=== PATIENT | female | born 1955 | race Caucasian/White ===

== ENCOUNTER 2016-09-28 11:46 | Emergency (ER) | payer SELFPAY ==
--- NOTE | 2016-09-28 12:13 | ER Document Report ---
ED Medical Screen (RME) - General Stated Complaint: ABDOMINAL PAIN Mode of Arrival: Ambulatory Information source: Patient Notes: Patient presents complaining of right lower groin/ pelvic tenderness. Patient saw her primary doctor 4 days ago and went to [facility] 3 days ago. Patient reports pain symptoms since May of last year. Patient reports that she was voiding and noticed stool in her urine last night. hx: COPD I have greeted and performed a rapid initial assessment of this patient. A comprehensive ED assessment and evaluation of the patient, analysis of test results and completion of the medical decision making process will be conducted by additional ED providers. Physical Exam - Vital signs Vitals: Temp Pulse Resp BP Pulse Ox 98.0 F 93 18 104/66 93 09/28/16 11:51 09/28/16 11:51 09/28/16 11:51 09/28/16 11:51 09/28/16 11:51 - Abdominal Tenderness: Tender - Right lower pelvic Course - Vital Signs Vital signs: Temp Pulse Resp BP Pulse Ox 98.0 F 93 18 104/66 93 09/28/16 11:51 09/28/16 11:51 09/28/16 11:51 09/28/16 11:51 09/28/16 11:51
[2016-09-28 13:24] LABS: ABSOLUTE BASOPHILS # (AUTO) 0.1 10^3/uL (0.0-0.2); ABSOLUTE EOSINOPHILS # (AUTO) 0.2 10^3/uL (0.0-0.6); ABSOLUTE LYMPHOCYTES (AUTO) 1.5 10^3/uL (0.5-4.7); ABSOLUTE MONOCYTES (AUTO) 0.7 10^3/uL (0.1-1.4); ABSOLUTE NEUT (AUTO) 5.5 10^3/uL (1.7-8.2); BASOPHILS % (AUTO) 0.9 % (0-2); EOSINOPHILS % (AUTO) 2.9 % (0-6); HEMATOCRIT 37.5 % (36.0-47.0); HEMOGLOBIN 12.7 g/dL (12.0-15.5); HGB HCT DIFFERENCE 0.6; LYMPHOCYTES % (AUTO) 18.4 % (13-45); MEAN CORPUSCULAR VOLUME 85 fl (80-97); MONOCYTES % (AUTO) 8.8 % (3-13); RED CELL DISTRIBUTION WIDTH 13.5 % (11.5-14.0)
[2016-09-28 13:40] LABS: ALANINE AMINOTRANSFERASE 21 U/L (9-52); ALBUMIN 4.3 g/dL (3.5-5.0); ALKALINE PHOSPHATASE 99 U/L (38-126); ANION GAP 12 (5-19); ASPARTATE AMINO TRANSFERASE 19 U/L (14-36); BILIRUBIN,TOTAL 0.4 mg/dL (0.2-1.3); BLOOD UREA NITROGEN 21 mg/dL (7-20); CALCIUM 9.7 mg/dL (8.4-10.2); CARBON DIOXIDE 27 mmol/L (22-30); CHLORIDE 104 mmol/L (98-107); CREATININE RESULT 0.63 mg/dL (0.52-1.25); GLUCOSE 96 mg/dL (75-110); POTASSIUM 3.7 mmol/L (3.6-5.0); SODIUM 143.2 mmol/L (137-145); TOTAL PROTEIN 7.2 g/dL (6.3-8.2)
[2016-09-28 13:42] LABS: APPEARANCE,URINE SLIGHTLY-CLOUDY; BILIRUBIN,URINE NEGATIVE (NEGATIVE); GLUCOSE, URINE NEGATIVE (NEGATIVE); KETONES,URINE NEGATIVE (NEGATIVE); LEUKOCYTE ESTERASE,URINE NEGATIVE (NEGATIVE); NITRITE,URINE NEGATIVE (NEGATIVE); PROTEIN,URINE NEGATIVE (NEGATIVE)
--- NOTE | 2016-09-28 14:54 | ER Document Report ---
ED GI/ - General Time seen by provider: 14:45 Mode of Arrival: Ambulatory Information source: Patient TRAVEL OUTSIDE OF THE [place] IN LAST 30 DAYS: No - HPI Patient complains to provider of: Abdominal pain - RLQ, Other - Presence of fecal material in urine. Onset: Other - Abdominal pain has been present since May 2016, fecal material in urine has been present since last night Location: RLQ Associated symptoms: Other - see above <NASEEM DONALD - Last Filed: 09/28/16 20:16> <SIDNEY ROSENBAUM - Last Filed: 10/05/16 14:09> - General Chief Complaint: Lower Abdominal Pain Stated Complaint: ABDOMINAL PAIN Notes: 61 year old female with history of COPD and a hysterectomy presents to the ED complaining of fecal material in her urine that started last night. Patient states that when she went to urinate last night, she noticed a blood clot like material pass. Upon further examination, the patient said that it was fecal material. Patient is also complaining of RLQ abdominal pain that has been present since May 2016. Patient was seen at [facility] 4 days ago for the same complaint and had a CT abdomen performed. Patient's family states that the scans were inconclusive except for some areas of interest on the patient's lungs. Patient describes the pain as if her abdomen is kevin and the only way to achieve relief is to raise her hands above her head. These episodes lasts for minutes and happens generally when moving in a certain way. Patient denies getting a colonoscopy or following up with her primary care physician for the abdominal pain. Patient denies having a primary care provider. (NASEEM DONALD) - Related Data Allergies/Adverse Reactions: No Known Allergies Allergy (Verified 09/28/16 12:14) Past Medical History - General Information source: Patient - Social History Smoking Status: Former Smoker Chew tobacco use (# tins/day): No Family History: Reviewed & Not Pertinent Patient has suicidal ideation: No Patient has homicidal ideation: No Pulmonary Medical History: Reports: Hx COPD Renal/ Medical History: Denies: Hx Peritoneal Dialysis Past Surgical History: Reports: Hx Hysterectomy <NASEEM DONALD - Last Filed: 09/28/16 20:16> Review of Systems - Review of Systems Constitutional: No symptoms reported EENT: No symptoms reported Cardiovascular: No symptoms reported Respiratory: No symptoms reported Gastrointestinal: See HPI, Abdominal pain - RLQ, Other - Fecal material in patient's urine. Genitourinary: No symptoms reported Female Genitourinary: No symptoms reported Musculoskeletal: No symptoms reported Skin: No symptoms reported Hematologic/Lymphatic: No symptoms reported Neurological/Psychological: No symptoms reported -: Yes All other systems reviewed and negative <NASEEM DONALD - Last Filed: 09/28/16 20:16> Physical Exam - Vital signs Interpretation: Normal - General General appearance: Alert In distress: None - HEENT Head: Normocephalic, Atraumatic Eyes: Normal Extraocular movements intact: Yes Pupils: PERRL - Respiratory Respiratory status: No respiratory distress Breath sounds: Normal - Cardiovascular Rhythm: Regular Heart sounds: Normal auscultation - Abdominal Inspection: Normal Distension: No distension Bowel sounds: Normal Tenderness: Nontender - Back Back: Normal - Extremities General upper extremity: Normal inspection, Normal ROM General lower extremity: Normal inspection, Normal ROM - Neurological Neuro grossly intact: Yes Cognition: Normal Orientation: AAOx4 Germain Coma Scale Eye Opening: Spontaneous Paradis Coma Scale Verbal: Oriented Germain Coma Scale Motor: Obeys Commands Paradis Coma Scale Total: 15 Speech: Normal - Psychological Associated symptoms: Normal affect, Normal mood - Skin Skin Temperature: Warm Skin Moisture: Dry Skin Color: Normal <NASEEM DONALD - Last Filed: 09/28/16 20:16> Course - Laboratory Result Diagrams: 09/28/16 15:41 09/28/16 15:41 <NASEEM DONALD - Last Filed: 09/28/16 20:16> - Laboratory Result Diagrams: 09/28/16 15:41 09/28/16 15:41 <SIDNEY ROSENBAUM - Last Filed: 10/05/16 14:09> - Vital Signs Vital signs: Temp Pulse Resp BP Pulse Ox 98.2 F 93 16 118/75 94 09/28/16 20:03 09/28/16 20:03 09/28/16 20:03 09/28/16 20:03 09/28/16 20:03 - Laboratory Laboratory results interpreted by me: 09/28/16 09/28/16 09/28/16 12:50 12:50 15:41 BUN 21 H 21 H Urine Urobilinogen 4.0 H Discharge <NASEEM DONALD - Last Filed: 09/28/16 20:16> <SIDNEY ROSENBAUM - Last Filed: 10/05/16 14:09> - Discharge Clinical Impression: Abdominal pain Qualifiers: Abdominal location: unspecified location Qualified Code(s): R10.9 - Unspecified abdominal pain Condition: Stable Disposition: HOME, SELF-CARE Instructions: Abdominal Pain ([facility]) Additional Instructions: Abdominal Pain There are many causes of abdominal pain. Pain can mean a serious problem requiring surgery (such as appendicitis). It can also be an innocent problem that goes away on its own (such as a viral infection). Often, time must pass to determine the cause of pain. The physician does not feel that hospitalization is necessary, at present. Things may change within the next 24 hours. Call the doctor or come back for re- examination if any problems occur, such as: (1) Pain that becomes more severe, steady, or becomes concentrated in one specific area. Also, pain that is more severe with movement or coughing. (2) Vomiting that persists or becomes more frequent. (3) Blood in the vomitus, urine, or bowel movements. Blood in the stool may have a tarry or black appearance. (4) Shaking chills or fever greater than 100 degrees F. (5) The abdomen becomes more distended or swollen. (6) Bowel movements cease. (7) Failure to improve as expected. Referrals: FLORY TORRES MD [ACTIVE STAFF] - Follow up in 3-5 days (Call for follow-up appointment be seen in 3-4 days) [facility] [Provider Group] - Follow up in 3-5 days (Call in a.m. for follow-up appointment in 3-5 days and to establish herself with a primary care physician return for increasing worsening or new symptoms) Scribe Documentation - Scribe Written by Anastasiia:: Anastasiia Coombs, 09/28/2016 1545 acting as scribe for :: Rigo <NASEEM DONALD - Last Filed: 09/28/16 20:16>
[2016-09-28 16:10] LABS: ABSOLUTE BASOPHILS # (AUTO) 0.1 10^3/uL (0.0-0.2); ABSOLUTE EOSINOPHILS # (AUTO) 0.2 10^3/uL (0.0-0.6); ABSOLUTE LYMPHOCYTES (AUTO) 1.6 10^3/uL (0.5-4.7); ABSOLUTE MONOCYTES (AUTO) 0.8 10^3/uL (0.1-1.4); ABSOLUTE NEUT (AUTO) 5.7 10^3/uL (1.7-8.2); BASOPHILS % (AUTO) 0.6 % (0-2); EOSINOPHILS % (AUTO) 2.4 % (0-6); HEMATOCRIT 38.8 % (36.0-47.0); HEMOGLOBIN 12.9 g/dL (12.0-15.5); HGB HCT DIFFERENCE -0.1; LYMPHOCYTES % (AUTO) 19.6 % (13-45); MEAN CORPUSCULAR HEMOGLOBIN 28.7 pg (27.0-33.4); MEAN CORPUSCULAR HGB CONC 33.4 g/dL (32.0-36.0); MEAN CORPUSCULAR VOLUME 86 fl (80-97); MONOCYTES % (AUTO) 10.1 % (3-13); RED BLOOD COUNT 4.51 10^6/uL (3.72-5.28); RED CELL DISTRIBUTION WIDTH 13.2 % (11.5-14.0); SEGMENTED NEUTROPHILS % (AUTO) 67.3 % (42-78); WHITE BLOOD COUNT 8.4 10^3/uL (4.0-10.5)
[2016-09-28 16:30] LABS: ALANINE AMINOTRANSFERASE 21 U/L (9-52); ALBUMIN 3.9 g/dL (3.5-5.0); ALKALINE PHOSPHATASE 101 U/L (38-126); ANION GAP 9 (5-19); ASPARTATE AMINO TRANSFERASE 27 U/L (14-36); BILIRUBIN,TOTAL 0.4 mg/dL (0.2-1.3); BLOOD UREA NITROGEN 21 mg/dL (7-20); CALCIUM 9.5 mg/dL (8.4-10.2); CARBON DIOXIDE 29 mmol/L (22-30); CHLORIDE 102 mmol/L (98-107); CREATININE RESULT 0.59 mg/dL (0.52-1.25); GLUCOSE 93 mg/dL (75-110); POTASSIUM 3.7 mmol/L (3.6-5.0); SODIUM 140.1 mmol/L (137-145); TOTAL PROTEIN 7.7 g/dL (6.3-8.2)
[2016-09-28 17:35] LABS: APPEARANCE,URINE CLEAR; BILIRUBIN,URINE NEGATIVE (NEGATIVE); GLUCOSE, URINE NEGATIVE (NEGATIVE); KETONES,URINE NEGATIVE (NEGATIVE); LEUKOCYTE ESTERASE,URINE NEGATIVE (NEGATIVE); NITRITE,URINE NEGATIVE (NEGATIVE); PROTEIN,URINE NEGATIVE (NEGATIVE); URINE SPECIFIC GRAVITY 1.008; UROBILINOGEN,URINE NEGATIVE mg/dL (<2.0)
[2016-09-28 20:08] VITALS: BP 118/75
== END 2016-09-28 20:20 | disposition home or self-care (01) ==
LOC: ER 11:46
DX: R10.31 Right lower quadrant pain (principal); R82.99 Other abnormal findings in urine; J44.9 Chronic obstructive pulmonary disease, unspecified; Z87.891 Personal history of nicotine dependence
CPT/HCPCS: 36415; 74177; 80053; 81001; 85025; 99284

== ENCOUNTER 2017-04-18 15:03 | Emergency (ER) | payer SELFPAY ==
[2017-04-18 15:20] VITALS: BP 103/60
== END 2017-04-18 16:54 | disposition left against medical advice (07) ==
LOC: ER 15:03
DX: Z53.9 Procedure and treatment not carried out, unspecified reason (principal); R11.10 Vomiting, unspecified